=== PATIENT | female | born 1995 | race Hispanic/Latino ===

== ENCOUNTER 2018-04-08 19:45 | Emergency (ER) | payer BC ==
[~2018-04-08] VITALS: Ht 167.6 cm; Wt 91.3 kg
[2018-04-08 20:37] LABS: BILIRUBIN,URINE NEGATIVE (NEGATIVE); CLARITY,URINE SL CLOUDY (CLEAR); COLOR,URINE YELLOW (YELLOW); KETONES,URINE 2+ (NEGATIVE); LEUKOCYTE ESTERASE ,URINE TRACE (NEGATIVE); NITRITE,URINE NEGATIVE (NEGATIVE); PROTEIN,URINE DIPSTICK NEGATIVE (NEGATIVE); URINE UROBILINOGEN 1 mg/dL (0.2 - 1)
[2018-04-08 20:38] LABS: PREGNANCY TEST, URINE POSITIVE (NEGATIVE)
[2018-04-08 20:47] LABS: BACTERIA,URINE RARE /HPF; EPITHELIAL CELLS,URINE MODERATE /LPF; TRANSITIONAL EPI CELLS,URINE FEW; WBC,URINE (MAN) 0-5 /HPF (0-5)
[2018-04-08 22:09] VITALS: BP 102/63
== END 2018-04-08 22:40 | disposition home or self-care (01) ==
LOC: ER 19:45
DX: O26.891 Other specified pregnancy related conditions, first trimester (principal); B37.3 Candidiasis of vulva and vagina
CPT/HCPCS: 81001; 81025; 99282